=== PATIENT | male | born 1985 | race Two or more races ===

== ENCOUNTER 2022-10-30 17:06 | Inpatient (IN) | payer OTHER ==
[2022-10-30 17:29] VITALS: BMI 28.7
[2022-10-30] MEDS ORDERED: NALOXONE HCL (KLOXXADO) 8 MG SPRAY NS PRN (19:05)
[2022-10-30] MEDS ORDERED: AMMONIUM LACTATE 12% LOTION 225 GM BOTTLE TP PRN (19:05)
[2022-10-30] MEDS ORDERED: ACETAMINOPHEN 325 MG TABLET (FP) PO PRN (19:05)
[2022-10-30] MEDS ORDERED: POLYETHYLENE GLYCOL (HEALTHYLAX) 3350 17 GM PACKET PO PRN (19:05)
[2022-10-30] MEDS ORDERED: IBUPROFEN 400 MG TABLET (FP) PO PRN (19:05)
[2022-10-30] MEDS ORDERED: MAGNESIUM HYDROX 2400MG/30ML ORAL SUSPENSION 30 ML CUP PO PRN (19:05)
[2022-10-30] MEDS ORDERED: hydrOXYzine PAMOATE 25 MG CAPSULE (FP) PO PRN (19:05)
[2022-10-30] MEDS ORDERED: BENZOCAINE/MENTHOL (CHLORASEPTIC ) LOZENGE MM PRN (19:05)
[2022-10-30] MEDS ORDERED: MAG HYDROX/AL HYDROX/SIMETH 30 ML UNIT-DOSE CUP PO PRN (19:05)
[2022-10-30] MEDS ORDERED: guaiFENesin 600 MG TABLET.ER (FP) PO PRN (19:05)
[2022-10-30] MEDS ORDERED: LOPERAMIDE HCL 2 MG CAPSULE PO PRN (19:05)
[2022-10-30] MEDS ORDERED: COLLOIDAL OATMEAL 1 BAR EACH TP PRN (19:05)
[2022-10-30] MEDS ORDERED: BENZONATATE 200 MG CAPSULE PO PRN (19:05)
[2022-10-30] MEDS ORDERED: NALOXONE HCL 0.4 MG/ML VIAL IM PRN (19:05)
[2022-10-30] MEDS ORDERED: TUBERCULIN PPD 5 TU/0.1ML SYRINGE (IN PATIENT USE ONLY) ID ONE (21:30)
[2022-10-30] MEDS ORDERED: TUBERCULIN PPD 5 TU/0.1ML VIAL ID ONE (21:38)
[2022-10-30] MEDS: THIAMINE HCL 100 MG TABLET (FP) PO SCH (21:39)
[2022-10-30] MEDS: MELATONIN 5 MG TABLETS PO SCH (21:39)
[2022-10-31] MEDS: PRENATAL VITAMINS W/ FOLIC ACID TABLET (FP) PO SCH (09:45)
[2022-10-31 10:56] LABS: HEMATOCRIT 42.8 % (35.4-49); HEMOGLOBIN 15.1 GM/dL (11.7-16.9); MCH 29.5 pg (25.7-33.7); MCHC 35.3 g/dl (32.0-35.9); MEAN CELL VOLUME 83.5 fl (80-96); MEAN PLT VOLUME 8.6 fl (7.5-11.1); PLATELET COUNT 315 10^3/uL (134-434); RBC 5.12 M/mm3 (4.00-5.60); RDW 15.9 % (11.9-15.9)
[2022-10-31 11:10] LABS: WHITE BLOOD COUNT 5.5 K/mm3 (4.0-10.0)
[2022-10-31 11:38] LABS: POTASSIUM 3.9 mmol/L (3.5-5.1)
[2022-10-31 11:44] LABS: CALCIUM 9.4 mg/dL (8.5-10.1)
[2022-10-31 11:45] LABS: ALBUMIN 3.2 g/dl (3.4-5.0); BLOOD UREA NITROGEN 10.5 mg/dL (7-18)
[2022-10-31 11:48] LABS: CREATININE 0.7 mg/dL (0.55-1.3)
[2022-10-31 11:49] LABS: BILIRUBIN,TOTAL 0.6 mg/dL (0.2-1); TOT PROT 7.8 g/dl (6.4-8.2)
[2022-10-31] MEDS: NICOTINE 10 MG CARTRIDGE (INHALER) IH PRN (17:58)
[2022-10-31] MEDS: MELATONIN 5 MG TABLETS PO SCH (21:27)
[2022-10-31] MEDS: THIAMINE HCL 100 MG TABLET (FP) PO SCH (21:27)
[2022-10-31 23:00] LABS: PH,URINE 7.5 (5.0-8.0); URINE APPEARANCE TURBID; URINE BILIRUBIN NEGATIVE (NEGATIVE); URINE COLOR YELLOW; URINE GLUCOSE (UA) NEGATIVE (NEGATIVE); URINE KETONE NEGATIVE (NEGATIVE); URINE LEUK ESTERASE NEGATIVE (NEGATIVE); URINE NITRITE NEGATIVE (NEGATIVE); URINE PROTEIN NEGATIVE (NEGATIVE)
[2022-11-01] MEDS: PRENATAL VITAMINS W/ FOLIC ACID TABLET (FP) PO SCH (10:44)
[2022-11-01] MEDS: NICOTINE 10 MG CARTRIDGE (INHALER) IH PRN ×2 (10:45→21:07)
[2022-11-01] MEDS: THIAMINE HCL 100 MG TABLET (FP) PO SCH (21:06)
[2022-11-01] MEDS: MELATONIN 5 MG TABLETS PO SCH (21:07)
[2022-11-02] MEDS: PRENATAL VITAMINS W/ FOLIC ACID TABLET (FP) PO SCH (09:50)
[2022-11-02] MEDS: NICOTINE 10 MG CARTRIDGE (INHALER) IH PRN ×2 (13:29→21:33)
[2022-11-02] MEDS: MELATONIN 5 MG TABLETS PO SCH (21:32)
[2022-11-02] MEDS: THIAMINE HCL 100 MG TABLET (FP) PO SCH (21:32)
[2022-11-03] MEDS: PRENATAL VITAMINS W/ FOLIC ACID TABLET (FP) PO SCH (09:56)
[2022-11-03] MEDS: NICOTINE 10 MG CARTRIDGE (INHALER) IH PRN (21:09)
[2022-11-03] MEDS: THIAMINE HCL 100 MG TABLET (FP) PO SCH (21:09)
[2022-11-03] MEDS: MELATONIN 5 MG TABLETS PO SCH (21:09)
[2022-11-04] MEDS: PRENATAL VITAMINS W/ FOLIC ACID TABLET (FP) PO SCH (09:47)
[2022-11-04] MEDS: NICOTINE 10 MG CARTRIDGE (INHALER) IH PRN ×2 (09:47→21:56)
[2022-11-04] MEDS: MELATONIN 5 MG TABLETS PO SCH (21:56)
[2022-11-04] MEDS: THIAMINE HCL 100 MG TABLET (FP) PO SCH (21:56)
[2022-11-05] MEDS: PRENATAL VITAMINS W/ FOLIC ACID TABLET (FP) PO SCH (10:14)
[2022-11-05] MEDS: NICOTINE 10 MG CARTRIDGE (INHALER) IH PRN (17:05)
[2022-11-05] MEDS: MELATONIN 5 MG TABLETS PO SCH (21:47)
[2022-11-05] MEDS: THIAMINE HCL 100 MG TABLET (FP) PO SCH (21:47)
[2022-11-06] MEDS: PRENATAL VITAMINS W/ FOLIC ACID TABLET (FP) PO SCH (09:55)
[2022-11-06] MEDS: NICOTINE 10 MG CARTRIDGE (INHALER) IH PRN (09:55)
[2022-11-06] MEDS: MELATONIN 5 MG TABLETS PO SCH (21:22)
[2022-11-06] MEDS: THIAMINE HCL 100 MG TABLET (FP) PO SCH (21:22)
[2022-11-07] MEDS: PRENATAL VITAMINS W/ FOLIC ACID TABLET (FP) PO SCH (10:50)
[2022-11-07] MEDS: THIAMINE HCL 100 MG TABLET (FP) PO SCH (21:50)
[2022-11-07] MEDS: MELATONIN 5 MG TABLETS PO SCH (21:50)
[2022-11-08] MEDS: PRENATAL VITAMINS W/ FOLIC ACID TABLET (FP) PO SCH (10:04)
[2022-11-08] MEDS: THIAMINE HCL 100 MG TABLET (FP) PO SCH (21:30)
[2022-11-08] MEDS: MELATONIN 5 MG TABLETS PO SCH (21:31)
[2022-11-09] MEDS: PRENATAL VITAMINS W/ FOLIC ACID TABLET (FP) PO SCH (10:12)
[2022-11-09] MEDS: NICOTINE 10 MG CARTRIDGE (INHALER) IH PRN (10:13)
[2022-11-09] MEDS: MELATONIN 5 MG TABLETS PO SCH (21:10)
[2022-11-09] MEDS: THIAMINE HCL 100 MG TABLET (FP) PO SCH (21:10)
[2022-11-10] MEDS: PRENATAL VITAMINS W/ FOLIC ACID TABLET (FP) PO SCH (09:41)
[2022-11-10] MEDS: MELATONIN 5 MG TABLETS PO SCH (21:51)
[2022-11-10] MEDS: THIAMINE HCL 100 MG TABLET (FP) PO SCH (21:51)
[2022-11-11] MEDS: PRENATAL VITAMINS W/ FOLIC ACID TABLET (FP) PO SCH (10:01)
[2022-11-11] MEDS: NICOTINE 10 MG CARTRIDGE (INHALER) IH PRN (10:02)
[2022-11-11] MEDS: MELATONIN 5 MG TABLETS PO SCH (21:58)
[2022-11-11] MEDS: THIAMINE HCL 100 MG TABLET (FP) PO SCH (21:59)
[2022-11-12] MEDS: PRENATAL VITAMINS W/ FOLIC ACID TABLET (FP) PO SCH (09:49)
[2022-11-12] MEDS: MELATONIN 5 MG TABLETS PO SCH (21:17)
[2022-11-12] MEDS: THIAMINE HCL 100 MG TABLET (FP) PO SCH (21:17)
[2022-11-13 07:01] VITALS: RESP 18
[2022-11-13] MEDS: PRENATAL VITAMINS W/ FOLIC ACID TABLET (FP) PO SCH (09:59)
[2022-11-13] MEDS: NICOTINE 10 MG CARTRIDGE (INHALER) IH PRN ×2 (14:41→21:07)
[2022-11-13] MEDS: THIAMINE HCL 100 MG TABLET (FP) PO SCH (21:07)
[2022-11-13] MEDS: MELATONIN 5 MG TABLETS PO SCH (21:07)
[2022-11-14] MEDS: PRENATAL VITAMINS W/ FOLIC ACID TABLET (FP) PO SCH (09:58)
[2022-11-14] MEDS: THIAMINE HCL 100 MG TABLET (FP) PO SCH (21:16)
[2022-11-14] MEDS: NICOTINE 10 MG CARTRIDGE (INHALER) IH PRN (21:16)
[2022-11-14] MEDS: MELATONIN 5 MG TABLETS PO SCH (21:16)
[2022-11-14] MEDS: IBUPROFEN 600 MG TABLET (FP) PO PRN (21:59)
[2022-11-15] MEDS: PRENATAL VITAMINS W/ FOLIC ACID TABLET (FP) PO SCH (10:05)
[2022-11-15] MEDS: NICOTINE 10 MG CARTRIDGE (INHALER) IH PRN ×2 (10:05→15:51)
[2022-11-15] MEDS: THIAMINE HCL 100 MG TABLET (FP) PO SCH (21:26)
[2022-11-15] MEDS: MELATONIN 5 MG TABLETS PO SCH (21:27)
[2022-11-15] MEDS: IBUPROFEN 600 MG TABLET (FP) PO PRN (21:27)
[2022-11-16] MEDS: PRENATAL VITAMINS W/ FOLIC ACID TABLET (FP) PO SCH (09:47)
[2022-11-16] MEDS: THIAMINE HCL 100 MG TABLET (FP) PO SCH (21:44)
[2022-11-16] MEDS: NICOTINE 10 MG CARTRIDGE (INHALER) IH PRN (21:44)
[2022-11-16] MEDS: MELATONIN 5 MG TABLETS PO SCH (21:44)
[2022-11-17] MEDS: NICOTINE 10 MG CARTRIDGE (INHALER) IH PRN ×3 (10:19→21:19)
[2022-11-17] MEDS: PRENATAL VITAMINS W/ FOLIC ACID TABLET (FP) PO SCH (10:19)
[2022-11-17] MEDS: THIAMINE HCL 100 MG TABLET (FP) PO SCH (21:18)
[2022-11-17] MEDS: MELATONIN 5 MG TABLETS PO SCH (21:18)
[2022-11-18] MEDS: NICOTINE 10 MG CARTRIDGE (INHALER) IH PRN (10:26)
[2022-11-18] MEDS: PRENATAL VITAMINS W/ FOLIC ACID TABLET (FP) PO SCH (10:26)
[2022-11-18] MEDS: MELATONIN 5 MG TABLETS PO SCH (21:29)
[2022-11-18] MEDS: THIAMINE HCL 100 MG TABLET (FP) PO SCH (21:29)
[2022-11-19] MEDS: PRENATAL VITAMINS W/ FOLIC ACID TABLET (FP) PO SCH (10:24)
[2022-11-19] MEDS: MELATONIN 5 MG TABLETS PO SCH (22:08)
[2022-11-19] MEDS: THIAMINE HCL 100 MG TABLET (FP) PO SCH (22:08)
[2022-11-20] MEDS: PRENATAL VITAMINS W/ FOLIC ACID TABLET (FP) PO SCH (09:52)
[2022-11-20] MEDS: NICOTINE 10 MG CARTRIDGE (INHALER) IH PRN ×2 (09:52→21:23)
[2022-11-20] MEDS: THIAMINE HCL 100 MG TABLET (FP) PO SCH (21:22)
[2022-11-20] MEDS: MELATONIN 5 MG TABLETS PO SCH (21:23)
[2022-11-21] MEDS: PRENATAL VITAMINS W/ FOLIC ACID TABLET (FP) PO SCH (10:02)
[2022-11-21] MEDS: NICOTINE 10 MG CARTRIDGE (INHALER) IH PRN ×2 (10:03→21:22)
[2022-11-21] MEDS: MELATONIN 5 MG TABLETS PO SCH (21:21)
[2022-11-21] MEDS: THIAMINE HCL 100 MG TABLET (FP) PO SCH (21:21)
[2022-11-22] MEDS: PRENATAL VITAMINS W/ FOLIC ACID TABLET (FP) PO SCH (10:09)
[2022-11-22] MEDS: NICOTINE 10 MG CARTRIDGE (INHALER) IH PRN ×3 (10:10→21:20)
[2022-11-22] MEDS: THIAMINE HCL 100 MG TABLET (FP) PO SCH (21:20)
[2022-11-22] MEDS: MELATONIN 5 MG TABLETS PO SCH (21:20)
[2022-11-23] MEDS: PRENATAL VITAMINS W/ FOLIC ACID TABLET (FP) PO SCH (10:16)
[2022-11-23] MEDS: NICOTINE 10 MG CARTRIDGE (INHALER) IH PRN ×2 (10:16→21:22)
[2022-11-23] MEDS: THIAMINE HCL 100 MG TABLET (FP) PO SCH (21:22)
[2022-11-23] MEDS: MELATONIN 5 MG TABLETS PO SCH (21:22)
[2022-11-24] MEDS: NICOTINE 10 MG CARTRIDGE (INHALER) IH PRN ×2 (10:00→21:10)
[2022-11-24] MEDS: PRENATAL VITAMINS W/ FOLIC ACID TABLET (FP) PO SCH (10:00)
[2022-11-24] MEDS: MELATONIN 5 MG TABLETS PO SCH (21:10)
[2022-11-24] MEDS: THIAMINE HCL 100 MG TABLET (FP) PO SCH (21:10)
[2022-11-25] MEDS: NICOTINE 10 MG CARTRIDGE (INHALER) IH PRN ×2 (09:42→21:14)
[2022-11-25] MEDS: PRENATAL VITAMINS W/ FOLIC ACID TABLET (FP) PO SCH (09:42)
[2022-11-25] MEDS: MELATONIN 5 MG TABLETS PO SCH (21:14)
[2022-11-25] MEDS: THIAMINE HCL 100 MG TABLET (FP) PO SCH (21:14)
[2022-11-26] MEDS: PRENATAL VITAMINS W/ FOLIC ACID TABLET (FP) PO SCH (10:13)
[2022-11-26] MEDS: NICOTINE 10 MG CARTRIDGE (INHALER) IH PRN ×2 (10:14→21:17)
[2022-11-26] MEDS: THIAMINE HCL 100 MG TABLET (FP) PO SCH (21:17)
[2022-11-26] MEDS: MELATONIN 5 MG TABLETS PO SCH (21:17)
[2022-11-27 06:57] VITALS: BP 115/76; PULSE 87; TEMP 98.6
== END 2022-11-27 09:45 | disposition home or self-care (01) | DRG 774 ==
LOC: YASAS 17:06 → Y3W 21:15
PROVIDERS: ADMIT Allergy & Immunology; ATTEND Allergy & Immunology
PROC: HZ2ZZZZ Detoxification Services for Substance Abuse Treatment (ICD-10-PCS; principal; 2022-10-30)
DX: F14.20 Cocaine dependence, uncomplicated (principal); F17.210 Nicotine dependence, cigarettes, uncomplicated
CPT/HCPCS: 36415; 80053; 81003; 85027; 86780; C9803-CS; U0003; U0005

== ENCOUNTER 2023-09-07 15:32 | Inpatient (IN) | payer OTHER ==
[2023-09-07 16:20] VITALS: BMI 27.1
[2023-09-07] MEDS ORDERED: BENZONATATE 200 MG CAPSULE PO PRN (18:37)
[2023-09-07] MEDS ORDERED: IBUPROFEN 400 MG TABLET (FP) PO PRN (18:37)
[2023-09-07] MEDS ORDERED: ACETAMINOPHEN 325 MG TABLET (FP) PO PRN (18:37)
[2023-09-07] MEDS ORDERED: hydrOXYzine PAMOATE 25 MG CAPSULE (FP) PO PRN (18:37)
[2023-09-07] MEDS ORDERED: BENZOCAINE/MENTHOL (CHLORASEPTIC ) LOZENGE MM PRN (18:37)
[2023-09-07] MEDS ORDERED: guaiFENesin 600 MG TABLET.ER (FP) PO PRN (18:37)
[2023-09-07] MEDS ORDERED: LOPERAMIDE HCL 2 MG CAPSULE PO PRN (18:37)
[2023-09-07] MEDS ORDERED: IBUPROFEN 600 MG TABLET (FP) PO PRN (18:37)
[2023-09-07] MEDS ORDERED: MAG HYDROX/AL HYDROX/SIMETH 30 ML UNIT-DOSE CUP PO PRN (18:37)
[2023-09-07] MEDS ORDERED: POLYETHYLENE GLYCOL (HEALTHYLAX) 3350 17 GM PACKET PO PRN (18:37)
[2023-09-07] MEDS ORDERED: MAGNESIUM HYDROX 2400MG/30ML ORAL SUSPENSION 30 ML CUP PO PRN (18:37)
[2023-09-07] MEDS ORDERED: NALOXONE HCL (KLOXXADO) 8 MG SPRAY NS PRN (18:37)
[2023-09-07] MEDS ORDERED: NALOXONE HCL 0.4 MG/ML VIAL IM PRN (18:37)
[2023-09-07] MEDS ORDERED: MELATONIN 5 MG TABLETS ONE (22:09)
[2023-09-07] MEDS: MELATONIN 5 MG TABLETS PO SCH (22:17)
[2023-09-07] MEDS: THIAMINE HCL 100 MG TABLET (FP) PO SCH (22:17)
[2023-09-08] MEDS: PRENATAL VITAMINS W/ FOLIC ACID TABLET (FP) PO SCH (09:49)
[2023-09-08 12:45] LABS: HEMATOCRIT 43.9 % (35.4-49); HEMOGLOBIN 14.6 GM/dL (11.7-16.9); MCH 30.3 pg (25.7-33.7); MCHC 33.3 g/dl (32.0-35.9); MEAN CELL VOLUME 90.8 fl (80-96); MEAN PLT VOLUME 8.5 fl (7.5-11.1); PLATELET COUNT 291 10^3/uL (134-434); RBC 4.84 M/mm3 (4.00-5.60); RDW 14.2 % (11.9-15.9); WHITE BLOOD COUNT 4.1 K/mm3 (4.0-10.0)
[2023-09-08 13:02] LABS: POTASSIUM 4.1 mmol/L (3.5-5.1)
[2023-09-08 13:04] LABS: BLOOD UREA NITROGEN 15.1 mg/dL (7-18); CALCIUM 8.5 mg/dL (8.5-10.1)
[2023-09-08 13:05] LABS: ALBUMIN 3.3 g/dl (3.4-5.0)
[2023-09-08 13:08] LABS: CREATININE 0.8 mg/dL (0.55-1.3)
[2023-09-08 13:09] LABS: BILIRUBIN,TOTAL 0.5 mg/dL (0.2-1); TOT PROT 7.1 g/dl (6.4-8.2)
[2023-09-09] MEDS: NICOTINE POLACRILEX 2 MG GUM BUC PRN (09:37)
[2023-09-09 15:46] LABS: PH,URINE 7.5 (5.0-8.0); URINE APPEARANCE CLEAR; URINE BILIRUBIN NEGATIVE (NEGATIVE); URINE COLOR YELLOW; URINE GLUCOSE (UA) NEGATIVE (NEGATIVE); URINE KETONE NEGATIVE (NEGATIVE); URINE LEUK ESTERASE NEGATIVE (NEGATIVE); URINE NITRITE NEGATIVE (NEGATIVE); URINE PROTEIN NEGATIVE (NEGATIVE); URINE UROBILINOGEN 0.2 mg/dL (0.2-1.0)
[2023-09-23 06:33] VITALS: BP 115/66; PULSE 81; RESP 18; TEMP 97.6
== END 2023-09-23 09:30 | disposition home or self-care (01) | DRG 772 ==
LOC: YASAS 15:32 → Y3E 22:06
PROVIDERS: ADMIT Allergy & Immunology; ATTEND Psychiatry & Neurology Pain Medicine
PROC: HZ42ZZZ Group Counseling for Substance Abuse Treatment, Cognitive-Behavioral (ICD-10-PCS; principal; 2023-09-07)
DX: F14.20 Cocaine dependence, uncomplicated (principal); F10.10 Alcohol abuse, uncomplicated; F17.210 Nicotine dependence, cigarettes, uncomplicated; D86.89 Sarcoidosis of other sites; Z59.02 Unsheltered homelessness
CPT/HCPCS: 36415; 80053; 80305; 81003; 85027; 86780; 87635; 93005; 93010

== ENCOUNTER 2023-12-11 16:19 | Inpatient (IN) | payer OTHER ==
[2023-12-11 17:18] VITALS: BMI 26.9
[2023-12-11] MEDS ORDERED: P-EPHED 60MG/TRIPROLIDI 2.5MG TABLET PO PRN (20:38)
[2023-12-11] MEDS ORDERED: IBUPROFEN 600 MG TABLET (FP) PO PRN (20:38)
[2023-12-11] MEDS ORDERED: MAG HYDROX/AL HYDROX/SIMETH 30 ML UNIT-DOSE CUP PO PRN (20:38)
[2023-12-11] MEDS ORDERED: NICOTINE POLACRILEX 2 MG GUM BUC PRN (20:38)
[2023-12-11] MEDS ORDERED: LOPERAMIDE HCL 2 MG CAPSULE PO PRN (20:38)
[2023-12-11] MEDS ORDERED: DOCUSATE SODIUM 100 MG CAPSULE (FP) PO PRN (20:38)
[2023-12-11] MEDS ORDERED: IBUPROFEN 400 MG TABLET (FP) PO PRN (20:38)
[2023-12-11] MEDS ORDERED: BENZONATATE 200 MG CAPSULE PO PRN (20:38)
[2023-12-11] MEDS ORDERED: POLYETHYLENE GLYCOL (HEALTHYLAX) 3350 17 GM PACKET PO PRN (20:38)
[2023-12-11] MEDS ORDERED: BENZOCAINE/MENTHOL (CHLORASEPTIC ) LOZENGE MM PRN (20:38)
[2023-12-11] MEDS ORDERED: MAGNESIUM HYDROX 2400MG/30ML ORAL SUSPENSION 30 ML CUP PO PRN (20:38)
[2023-12-11] MEDS ORDERED: ACETAMINOPHEN 325 MG TABLET (FP) PO PRN (20:38)
[2023-12-11] MEDS ORDERED: hydrOXYzine PAMOATE 25 MG CAPSULE (FP) PO PRN (20:38)
[2023-12-11] MEDS ORDERED: guaiFENesin 600 MG TABLET.ER (FP) PO PRN (20:38)
[2023-12-11] MEDS: MELATONIN 5 MG TABLETS PO SCH (23:28)
[2023-12-11] MEDS: THIAMINE 100 MG TABLET PO SCH (23:28)
[2023-12-12] MEDS: PRENATAL VITAMINS W/ FOLIC ACID TABLET (FP) PO SCH (09:16)
[2023-12-12 10:45] LABS: URINE APPEARANCE TURBID; URINE BILIRUBIN NEGATIVE (NEGATIVE); URINE COLOR YELLOW; URINE GLUCOSE (UA) NEGATIVE (NEGATIVE); URINE KETONE NEGATIVE (NEGATIVE); URINE LEUK ESTERASE NEGATIVE (NEGATIVE); URINE NITRITE NEGATIVE (NEGATIVE); URINE PROTEIN NEGATIVE (NEGATIVE)
[2023-12-12 10:51] LABS: POTASSIUM 4.1 mmol/L (3.5-5.1)
[2023-12-12 10:55] LABS: HEMATOCRIT 41.4 % (35.4-49); MCH 30.7 pg (25.7-33.7); MCHC 33.9 g/dl (32.0-35.9); MEAN CELL VOLUME 90.5 fl (80-96); MEAN PLT VOLUME 8.7 fl (7.5-11.1); PLATELET COUNT 278 10^3/uL (134-434); RBC 4.57 M/mm3 (4.00-5.60); WHITE BLOOD COUNT 4.3 K/mm3 (4.0-10.0)
[2023-12-12 10:58] LABS: CALCIUM 9.1 mg/dL (8.5-10.1)
[2023-12-12 10:59] LABS: ALBUMIN 3.3 g/dl (3.4-5.0)
[2023-12-12 11:02] LABS: CREATININE 0.8 mg/dL (0.55-1.3)
[2023-12-12 11:04] LABS: BILIRUBIN,TOTAL 0.5 mg/dL (0.2-1); TOT PROT 6.4 g/dl (6.4-8.2)
[2023-12-19 06:46] VITALS: RESP 20; TEMP 97.9
[2023-12-19 10:56] VITALS: BP 135/98; PULSE 85
== END 2023-12-19 14:25 | disposition home or self-care (01) | DRG 772 ==
LOC: YASAS 16:19 → Y3NR 21:29 → Y5N 12-12 14:15
PROVIDERS: ADMIT Allergy & Immunology; ATTEND Psychiatry & Neurology Pain Medicine
PROC: HZ42ZZZ Group Counseling for Substance Abuse Treatment, Cognitive-Behavioral (ICD-10-PCS; principal; 2023-12-11)
DX: F14.20 Cocaine dependence, uncomplicated (principal); F10.10 Alcohol abuse, uncomplicated; F12.20 Cannabis dependence, uncomplicated; F17.210 Nicotine dependence, cigarettes, uncomplicated; Z59.00 Homelessness unspecified
CPT/HCPCS: 36415; 80053; 80305; 81003; 85027; 86780; 87811

== ENCOUNTER 2024-07-31 17:11 | Inpatient (IN) | payer OTHER ==
[2024-07-31 18:33] VITALS: BMI 27.8
[2024-07-31] MEDS ORDERED: LOPERAMIDE HCL 2 MG CAPSULE PO PRN (19:54)
[2024-07-31] MEDS ORDERED: POLYETHYLENE GLYCOL (HEALTHYLAX) 3350 17 GM PACKET PO PRN (19:54)
[2024-07-31] MEDS ORDERED: MAG HYDROX/AL HYDROX/SIMETH 30 ML UNIT-DOSE CUP PO PRN (19:54)
[2024-07-31] MEDS ORDERED: guaiFENesin 600 MG TABLET.ER (FP) PO PRN (19:54)
[2024-07-31] MEDS ORDERED: MAGNESIUM HYDROX 2400MG/30ML ORAL SUSPENSION 30 ML CUP PO PRN (19:54)
[2024-07-31] MEDS ORDERED: BENZONATATE 200 MG CAPSULE PO PRN (19:54)
[2024-07-31] MEDS ORDERED: NICOTINE POLACRILEX 2 MG GUM BUC PRN (19:56)
[2024-07-31] MEDS: MELATONIN 5 MG TABLETS PO SCH (21:16)
[2024-07-31] MEDS: THIAMINE 100 MG TABLET PO SCH (21:16)
[2024-08-01 09:17] LABS: HEMATOCRIT 44.6 % (35.4-49); HEMOGLOBIN 14.9 GM/dL (11.7-16.9); MCH 30.1 pg (25.7-33.7); MCHC 33.3 g/dl (32.0-35.9); MEAN CELL VOLUME 90.4 fl (80-96); MEAN PLT VOLUME 8.1 fl (7.5-11.1); PLATELET COUNT 336 10^3/uL (134-434); RBC 4.93 M/mm3 (4.00-5.60); RDW 14.1 % (11.9-15.9); WHITE BLOOD COUNT 4.9 K/mm3 (4.0-10.0)
[2024-08-01 09:23] LABS: CHLORIDE 107 mmol/L (98-107); POTASSIUM 4.2 mmol/L (3.5-5.1); SODIUM 139 mmol/L (136-145)
[2024-08-01 09:43] LABS: ALBUMIN 3.5 g/dl (3.4-5.0); ANION GAP 8 mmol/L (4-13); CALCIUM 9.2 mg/dL (8.5-10.1); CO2 24 mmol/L (21-32)
[2024-08-01 09:44] LABS: BLOOD UREA NITROGEN 20.1 mg/dL (7-18); GLUCOSE,RANDOM 92 mg/dL (74-106)
[2024-08-01 09:46] LABS: SGOT/AST 29 U/L (15-37)
[2024-08-01 09:47] LABS: CREATININE 0.7 mg/dL (0.55-1.3); SGPT/ALT 34 U/L (13-61)
[2024-08-01 09:48] LABS: BILIRUBIN,TOTAL 0.4 mg/dL (0.2-1); TOT PROT 7.5 g/dl (6.4-8.2)
[2024-08-01 09:49] LABS: ALK PHOS 125 U/L (45-117)
[2024-08-01] MEDS: PRENATAL VITAMINS W/ FOLIC ACID TABLET (FP) PO SCH (11:02)
[2024-08-01 14:08] LABS: HIV INTERPRETATION NEGATIVE (NEGATIVE)
[2024-08-03] MEDS ORDERED: TUBERCULIN PPD 5 TU/0.1ML VIAL ID ONE (17:37)
[2024-08-04 11:58] LABS: PH,URINE 6.5 (5.0-8.0); URINE APPEARANCE CLEAR; URINE BILIRUBIN NEGATIVE (NEGATIVE); URINE COLOR YELLOW; URINE GLUCOSE (UA) NEGATIVE (NEGATIVE); URINE KETONE NEGATIVE (NEGATIVE); URINE LEUK ESTERASE NEGATIVE (NEGATIVE); URINE NITRITE NEGATIVE (NEGATIVE); URINE PROTEIN NEGATIVE (NEGATIVE); URINE UROBILINOGEN 0.2 mg/dL (0.2-1.0)
[2024-08-11 14:34] LABS: INR 0.95 (0.83-1.09); PROTHROMBIN TIME (PATIENT) 10.4 SEC (9.7-13.0)
[2024-08-15] MEDS: BENZOCAINE/MENTHOL (CHLORASEPTIC ) LOZENGE MM PRN (03:19)
[2024-08-15] MEDS: IBUPROFEN 400 MG TABLET (FP) PO PRN (05:02)
[2024-08-15] MEDS: IBUPROFEN 600 MG TABLET (FP) PO PRN (09:48)
[2024-08-15] MEDS: hydrOXYzine PAMOATE 25 MG CAPSULE (FP) PO PRN (21:14)
[2024-08-17] MEDS: ACETAMINOPHEN 325 MG TABLET (FP) PO PRN (06:54)
[2024-08-17] MEDS: guaiFENesin 600 MG TABLET.ER (FP) PO PRN (17:00)
[2024-08-17] MEDS: BENZONATATE 200 MG CAPSULE PO PRN (21:28)
[2024-08-18] MEDS: OSELTAMIVIR PHOSPHATE 75 MG CAPSULE PO SCH (10:46)
[2024-08-26 06:41] VITALS: RESP 18
[2024-08-28 07:13] VITALS: BP 108/74; PULSE 102; TEMP 97
== END 2024-08-28 12:30 | disposition home or self-care (01) | DRG 772 ==
LOC: YASAS 17:11 → Y3NR 20:36 → Y5N 08-03 12:04
PROVIDERS: ADMIT Allergy & Immunology; ATTEND Psychiatry & Neurology Pain Medicine
PROC: HZ42ZZZ Group Counseling for Substance Abuse Treatment, Cognitive-Behavioral (ICD-10-PCS; principal; 2024-07-31)
DX: F10.20 Alcohol dependence, uncomplicated (principal); F14.20 Cocaine dependence, uncomplicated; F12.20 Cannabis dependence, uncomplicated; F17.210 Nicotine dependence, cigarettes, uncomplicated; F19.282 Other psychoactive substance dependence with psychoactive substance-induced sleep disorder; D86.89 Sarcoidosis of other sites; J10.1 Influenza due to other identified influenza virus with other respiratory manifestations
CPT/HCPCS: 0241U-QW; 36415; 80053; 80305; 80307; 81003; 82140; 82652; 83735; 85027; 85610; 86780; 86803; 87389; 87811